=== PATIENT | male | born 1955 | race Caucasian/White ===

== ENCOUNTER 2017-02-12 10:13 | Emergency (ER) | payer OTHER ==
[~2017-02-12] VITALS: Ht 177.8 cm; Wt 83.6 kg
[2017-02-12 10:30] VITALS: BP 167/100
== END 2017-02-12 12:09 | disposition home or self-care (01) ==
LOC: ED 12:03
DX: I10 Essential (primary) hypertension (principal)
CPT/HCPCS: 93005; 99283